=== PATIENT | male | born 1970 | race Caucasian/White ===

== ENCOUNTER 2021-04-19 10:58 | Emergency (ER) | payer OTHER, SELFPAY ==
[2021-04-19 11:03] VITALS: BP 151/80; PULSE 93; RESP 17; TEMP 36.2; O2SAT 97
--- NOTE | 2021-04-19 11:42 | ED.WOUNDLAC ---
HPI - Wound/Laceration General Chief Complaint: Wound/Laceration Stated Complaint: cuts to left fingers Time Seen by Provider: 04/19/21 11:12 Source: patient Mode of arrival: ambulatory Limitations: no limitations History of Present Illness HPI narrative: 50-year-old with no major medical problems here with complaints of superficial laceration to his left hand and left wrist sustained few hours ago while he was at work. Patient states that he accidentally dropped air-conditioner on his hand. He states he had quite a bit of bleeding initially and his employer told him to go to the ER for evaluation. He also states that he is not quite sure about his tetanus vaccination. He denies any other injuries. Onset (ago): hour(s) (1) Extremity Location: Left: hand Place: work Patient tetanus UTD: No Context: accidental Associated symptoms: none Related Data Home Medications Medication Instructions Recorded Confirmed No Home Medications 04/19/21 04/19/21 Allergies Allergy/AdvReac Type Severity Reaction Status Date / Time No Known Allergies Allergy Unknown Verified 04/19/21 11:17 Review of Systems Review of Systems: All systems reviewed & are unremarkable except as noted in HPI and below Constitutional: Constitutional: Reports no additional constitutional complaints Eyes: Eyes: Reports no additional eye complaints ENT: Reports system reviewed and no additional complaints, except as documented Cardiovascular: Cardiovascular: Reports no additional cardiovascular complaints Respiratory: Respiratory: Reports no additional respiratory complaints Musculoskeletal: Musculoskeletal: Reports as per HPI Integumentary/Breasts: Skin/Breast: Reports system reviewed and no additional complaints, except as docu Neurologic: Reports system reviewed and no additional complaints, except as documented Exam Narrative: GENERAL: Well-appearing, well-nourished, and in no acute distress. HEAD: Normocephalic, atraumatic. EYES: PERRLA and EOMI. NECK: Supple. CHEST: Clear to auscultation. No respiratory distress. HEART: Regular rate and rhythm. No murmur heard. Normal peripheral pulses.. EXTREMITIES: Normal range of motion. No edema. Superficial abrasions on the left ring and middle finger, superficial laceration on the left wrist with no active bleeding. SKIN: Warm, dry, no rash. NEURO: No focal deficits. Alert and oriented x3. PSYCH: Normal mood and affect. Course Course Emergency Course: Wound was cleaned no active bleeding at this time sterile dressing was applied tetanus shot was given. Vital Signs Vital signs: Vital Signs Temperature 36.2 C L 04/19/21 11:03 Pulse Rate 93 04/19/21 11:03 Respiratory Rate 17 04/19/21 11:03 Blood Pressure 151/80 H 04/19/21 11:03 Pulse Oximetry 97 04/19/21 11:03 Temperature 36.2 C L 04/19/21 11:03 Pulse Rate 93 04/19/21 11:03 Respiratory Rate 17 04/19/21 11:03 Blood Pressure 151/80 H 04/19/21 11:03 Pulse Oximetry 97 04/19/21 11:03 Discharge Plan Discharge Clinical Impression: Abrasion Patient Disposition: Home, Self-Care Condition: Stable Instructions: Antibiotic Form, Abrasion (ED) Additional Instructions: Keep the wound dry and clean. Can take Tylenol for pain. Follow-up with your doctor if there is any sign of infection. Prescriptions: No Action No Home Medications RF: 0 Follow-up/Referrals: [facility], [Primary Care Provider] - Time of Disposition: 11:46
[2021-04-19] MEDS: TETANUS,DIPHTHERIA,AC PERTUSSIS ADULT (0.5 ML) BOOSTRIX IM (11:57)
== END 2021-04-19 12:07 | disposition home or self-care (01) ==
PROVIDERS: Emergency Provider Family Medicine
DX: S61.512A Laceration without foreign body of left wrist, initial encounter (principal); S60.415A Abrasion of left ring finger, initial encounter; S60.413A Abrasion of left middle finger, initial encounter; Z23 Encounter for immunization; W20.8XXA Other cause of strike by thrown, projected or falling object, initial encounter
CPT/HCPCS: 90471; 90715; 99282

== ENCOUNTER 2021-12-13 09:29 | Emergency (ER) | payer OTHER, SELFPAY ==
--- NOTE | ~2021-12-13 | CT_ITS ---
EXAMINATION: CT brain wo con DATE: 12/13/2021 12:11 INDICATION: Bilateral superior parietal headache, neck pain for one week TECHNIQUE: Computed tomography (CT) of the head was performed without intravenous contrast. The mA wa s adjusted according to patient size. Iterative reconstruction technique was employed. Exam dose: 60 5.33 mGy-cm total exam DLP. COMPARISON: None FINDINGS: No intracranial mass lesion or hemorrhage or cerebrovascular accident. No midline shift or mass effect. Normal ventricular size. Normal jewell-white matter differentiation. No subdural or epidur al hematoma. The orbital contents are unremarkable. Small mucus retention cyst of the posterolateral wall of left maxillary sinus. The mastoid air cells are normally developed and aerated. No fracture or bone destruction of the cranial vault. IMPRESSION: No significant intracranial abnormality Reviewed, dictated and finalized at [facility]. Reviewed, dictated and finalized at [facility].
[2021-12-13 09:35] VITALS: PULSE 87; RESP 16; TEMP 36.8
[2021-12-13 11:10] VITALS: BP 146/95; PULSE 82; RESP 16; TEMP 36.8; O2SAT 96
[2021-12-13] MEDS: PROCHLORPERAZINE EDISYLATE 10 MG/2 ML VIAL 5 MG IV PUSH (11:52)
[2021-12-13] MEDS: diphenhydrAMINE HCl INJ 50 MG/ML VIAL 25 MG IV PUSH (11:52)
[2021-12-13] MEDS: KETOROLAC 15 MG/ML VIAL (*BKC) IV PUSH (11:53)
[2021-12-13 11:57] LABS: Basophils Absolute Auto 0.1 K/mm3 (0.0-0.1); Eosinophils Absolute Auto 0.2 K/mm3 (0-0.3); Eosinophils Percent Auto 3.3 % (0-4.4); Hematocrit 49.3 % (42.0-52.0); Hemoglobin 16.7 g/dL (14.0-18.0); Immature Granulocyte Absolute 0.02 K/mm3 (0.00-0.031); Immature Granulocyte Percent A 0.3 % (0-0.5); Lymphocytes Absolute Auto 1.15 K/mm3 (0.9-3.2); Lymphocytes Percent Auto 19.2 % (18.3-44.2); Mean Corpuscular HGB Conc 33.9 g/dl (32-36); Mean Corpuscular Hemoglobin 30.8 pg (26-34); Mean Corpuscular Volume 90.8 fl (80-100); Mean Platelet Volume 9.4 fl (7.4-10.4); Monocytes Absolute Auto 0.6 K/mm3 (0.1-0.6); Monocytes Percent Auto 10.2 % (2.6-8.5); Platelet Count Result 237 k/mm3 (150-375); Red Blood Count 5.43 M/mm3 (4.6-6.20); Red Cell Distribution Width 13.2 % (11.5-14.5)
[2021-12-13 12:00] VITALS: BP 140/88; PULSE 80; RESP 16; TEMP 36.8; O2SAT 96
[2021-12-13 12:05] LABS: Anion Gap 7 mmol/L (8-16); Blood Urea Nitrogen 15 mg/dL (9-20); Calcium 9.3 mg/dL (8.4-10.2); Carbon Dioxide 25 mmol/L (22-30); Chloride 105 mmol/L (98-107); Estimated CRCL calculation 124 ml/min; Estimated Glomerular Filt Rate > 60; Glucose 119 mg/dL (65-110); Potassium 4.5 mmol/L (3.4-5.0); Sodium 137 mmol/L (137-145)
[2021-12-13] MEDS: HYDROmorphone HCL INJ (*CRX) 1 MG/ML SYR 0.5 MG IV PUSH (12:54)
[2021-12-13 13:00] VITALS: BP 138/88; PULSE 78; RESP 16; O2SAT 96
--- NOTE | 2021-12-13 13:34 | ED.HA ---
HPI - Headache General Chief Complaint: Headache Stated Complaint: headache Time Seen by Provider: 12/13/21 11:04 Source: patient and family Mode of arrival: ambulatory Limitations: no limitations History of Present Illness HPI Narrative: 51-year-old otherwise healthy here with complaints of headache for the last few days now since this morning having more pain. He also complains of mild photophobia. No previous history of migraines. He denies any fever or chills no history of trauma. MD elicited complaint: headache Onset description: gradually Location: frontal Severity: moderate Quality & Timing: throbbing Exacerbating factors: light Relieving factors: nothing Associated symptoms: none Treatments prior to arrival: none Related Data Home Medications Medication Instructions Recorded Confirmed No Home Medications 04/19/21 04/19/21 Allergies Allergy/AdvReac Type Severity Reaction Status Date / Time No Known Allergies Allergy Unknown Verified 04/19/21 11:17 Review of Systems Review of Systems: All systems reviewed & are unremarkable except as noted in HPI and below Constitutional: Constitutional: Reports no additional constitutional complaints Eyes: Eyes: Reports no additional eye complaints ENT: Reports system reviewed and no additional complaints, except as documented Respiratory: Respiratory: Reports no additional respiratory complaints Gastrointestinal: Gastrointestinal: Reports no additional gastrointestinal complaints Musculoskeletal: Musculoskeletal: Reports no additional musculoskeletal complaints Integumentary/Breasts: Skin/Breast: Reports system reviewed and no additional complaints, except as docu Neurologic: Reports as per HPI Psychiatric: Psychiatric: Reports no additional psychiatric complaints Exam Narrative: GENERAL: Well-appearing, well-nourished, and in no acute distress. HEAD: Normocephalic, atraumatic. EYES: PERRLA and EOMI. NECK: Supple. CHEST: Clear to auscultation. No respiratory distress. HEART: Regular rate and rhythm. No murmur heard. Normal peripheral pulses. ABDOMEN: Soft, nontender, nondistended, normal active bowel sounds. EXTREMITIES: Normal range of motion. No edema. SKIN: Warm, dry, no rash. NEURO: No focal deficits. Alert and oriented x3. PSYCH: Normal mood and affect. Course Course Emergency Course: Patient feeling much better after IV pain medication. Informed him about his lab work, CT findings. Recommended him to follow-up with [place] primary doctor. Vital Signs Vital signs: Vital Signs Temperature 36.8 C 12/13/21 09:35 Pulse Rate 87 12/13/21 09:35 Respiratory Rate 16 12/13/21 09:35 Temperature 36.8 C 12/13/21 11:10 Pulse Rate 82 12/13/21 11:10 Respiratory Rate 16 12/13/21 11:10 Blood Pressure 146/95 H 12/13/21 11:10 Pulse Oximetry 96 12/13/21 11:10 MDM - Headache MDM Narrative Medical decision making narrative: 51-year-old otherwise healthy here with complaints of acute headache we will give him pain medication to CT of the head and lab work. Differential Diagnosis Differential diagnosis: Likely migraine, tension headache and subarachnoid hemorrhage Lab Data Result diagrams: 12/13/21 11:51 12/13/21 11:50 Labs: Lab Results 12/13/21 12/13/21 Range/Units 11:50 11:51 WBC 6.0 (4.5-10.0) K/mm3 RBC 5.43 (4.6-6.20) M/mm3 Hgb 16.7 (14.0-18.0) g/dL Hct 49.3 (42.0-52.0) % MCV 90.8 (80-100) fl MCH 30.8 (26-34) pg MCHC 33.9 (32-36) g/dl RDW 13.2 (11.5-14.5) % Plt Count 237 (150-375) k/mm3 MPV 9.4 (7.4-10.4) fl Immature Gran % (Auto) 0.3 (0-0.5) % Neut % (Auto) 66.0 (45.5-73.1) % Lymph % (Auto) 19.2 (18.3-44.2) % Nelson % (Auto) 10.2 H (2.6-8.5) % Eos % (Auto) 3.3 (0-4.4) % Baso % (Auto) 1.0 (0.2-1.2) % Lymph # (Auto) 1.15 (0.9-3.2) K/mm3 Nelson # (Auto) 0.6 (0.1-0.6) K/mm3 Eos # (Auto) 0.2 (0-0.3) K/
== END 2021-12-13 13:52 | disposition home or self-care (01) ==
PROVIDERS: Emergency Provider Family Medicine
DX: R51.9 Headache, unspecified (principal)
CPT/HCPCS: 36415; 70450; 80048; 85025; 96374; 96375; 99284; J0780; J1170; J1200; J1885

== ENCOUNTER 2021-12-23 23:00 | Observation (INO) | payer OTHER, SELFPAY ==
--- NOTE | ~2021-12-23 | XR_ITS ---
EXAMINATION: XR chest 2V DATE: 12/23/2021 23:35 INDICATION: Chest pain TECHNIQUE: PA and lateral views of the chest are obtained. COMPARISON: 05/06/2013 FINDINGS: The lungs are free of acute opacities. There is no pleural effusion or pneumothorax. Cardio megaly is noted. There is mild thoracic spondylosis. Surgical clips in the right upper quadrant are l ikely from prior cholecystectomy. IMPRESSION: 1. No acute cardiopulmonary abnormality. 2. Cardiomegaly. Reviewed, dictated and finalized at location [facility].
--- NOTE | ~2021-12-23 | CT_ITS ---
EXAMINATION: CTA chest PE protocol DATE: 12/24/2021 01:29 INDICATION: Left-sided chest pain TECHNIQUE: Computed tomography angiography (CTA) of the chest was performed with 100 mL Omnipaque-350 intravenous contrast timed to evaluate the pulmonary arteries. Coronal maximum intensity projection 3D-reconstructions were created by the technologist. The dose-length product (DLP) was 840.85 mGy-cm. Automated exposure control and iterative reconstruction technique were employed. COMPARISON: None. FINDINGS: The pulmonary arteries are well-opacified. No pulmonary embolism is identified. There is no pleural effusion or pneumothorax. Cardiomegaly is noted. There are no pathologically enlarged thorac ic lymph nodes. There is mild dependent atelectasis. Mild bilateral gynecomastia is noted. There is m oderate thoracic spondylosis. The gallbladder is surgically absent. IMPRESSION: 1. No pulmonary embolism or acute cardiopulmonary abnormality. 2. Cardiomegaly. Reviewed, dictated and finalized at location [facility].
[2021-12-23 23:08] VITALS: BP 145/78; PULSE 90; RESP 18; TEMP 36.6; O2SAT 99
--- NOTE | 2021-12-23 23:08 | ECG_ITS ---
Measurements Intervals [place] Rate: 93 P: 50 WV: 157 QRS: -25 QRSD: 106 T: 4 QT: 331 QTc: 412 Interpretive Statements SINUS RHYTHM INCOMPLETE RIGHT BUNDLE BRANCH BLOCK VOLTAGE CRITERIA FOR LVH BASELINE ARTIFACT- II, III, AVF, V1 BORDERLINE ECG Electronically Signed On 12-24-2021 6:31:07 CDT by Nathaniel Lee D.O.
[2021-12-23 23:16] VITALS: BP 138/80; PULSE 90; RESP 14; O2SAT 97
--- NOTE | 2021-12-23 23:18 | ED.CHESTPAIN ---
HPI - Chest Pain General Chief Complaint: Chest Pain Stated Complaint: CHEST PAIN Source: RN notes reviewed History of Present Illness HPI narrative: Patient presents emergency department from home via EMS for chest pain. Patient states he was sitting watching TV approximate 930 this evening developed left-sided chest pain the pain is located left side of the chest did not radiate described as sharp and stabbing. Patient states he did feel short of breath with the symptoms EMS was called and he states that he did receive nitroglycerin minimally helped the pain as well as an aspirin states that this time the pain is a 4 out of 10 he denies any fevers or chills nausea vomiting diarrhea or any other symptoms denies any previous cardiac history Related Data Home Medications Medication Instructions Recorded Confirmed No Home Medications 04/19/21 04/19/21 Allergies Allergy/AdvReac Type Severity Reaction Status Date / Time No Known Allergies Allergy Unknown Verified 04/19/21 11:17 Review of Systems Review of Systems: Gen.: Denies fevers or chills ENT: Denies congestion Respiratory: Reports shortness of breath or chest pain CV: See HPI GI: Denies abdominal pain nausea, emesis or diarrhea Musculoskeletal: Denies back pain or muscle pain Neuro: Denies numbness, tingling, weakness or focal weakness Skin: Denies rash Except as documented, all other systems reviewed and negative ON LICENSE OF [facility] Past Medical History Medical History (Updated 12/24/21 @ 03:19 by Emiliano Israel DO) Patient denies significant medical history Social History Social History (Updated 12/23/21 @ 23:19 by Emiliano Israel DO) Smoking status: Never smoker Exam Narrative: APPEARANCE: No acute distress, nontoxic, resting in bed HEENT: Normocephalic, atraumatic, OMM RESPIRATORY: No respiratory distress, clear to auscultation bilaterally with no rhonchi wheezing or rales CARDIOVASCULAR: RRR s murmur Chest: Tender palpation left anterior chest wall no swelling or ecchymosis ABDOMINAL: Soft nondistended tender palpation epigastric and left upper quadrant no tenderness in right upper quadrant right lower quadrant left lower quadrant no rebound or guarding MUSCULOSKELETAl: Moves all extremities. No clubbing, cyanosis or edema. NEURO: Awake and alert. Following commands, speech normal, no focal deficits SKIN:: Warm, dry. Normal Color PSYCHIATRIC: Normal affect/mood Course Course Emergency Course: Patient notes minimal change in pain with GI cocktail Toradol patient then resolved with morphine Discussed Dr. Dumont agrees with consult Discussed with Dr. Hemphill agrees with admission Discussed with patient and family results of workup and diagnosis. Discussed need for admission. Patient and family understand and agree to current treatment plan Vital Signs Vital signs: Vital Signs Temperature 97.8 F 12/23/21 23:08 Pulse Rate 90 12/23/21 23:08 Respiratory Rate 18 12/23/21 23:08 Blood Pressure 145/78 H 12/23/21 23:08 Pulse Oximetry 99 12/23/21 23:08 Temperature 97.8 F 12/23/21 23:08 Pulse Rate 86 12/24/21 01:25 Respiratory Rate 20 12/24/21 01:25 Blood Pressure 121/67 12/24/21 01:25 Pulse Oximetry 95 12/24/21 01:25 MDM - Chest Pain Lab Data Result diagrams: 12/23/21 23:19 12/23/21 23:19 Labs: Lab Results 12/23/21 12/23/21 12/23/21 Range/Units 23:19 23:19 23:19 WBC 5.1 (4.5-10.0) K/mm3 RBC 4.59 L (4.6-6.20) M/mm3 Hgb 14.1 (14.0-18.0) g/dL Hct 41.8 L (42.0-52.0) % MCV 91.1 (80-100) fl MCH 30.7 (26-34) pg MCHC 33.7 (32-36) g/dl RDW 13.3 (11.5-14.5) % Plt Count 184 (150-375) k/mm3 MPV 9.7 (7.4-10.4) fl Immature Gran % (Auto) 0.2 (0-0.5) % Neut % (Auto) 64.6 (45.5-73.1) % Lymph % (Auto) 19.3 (18.3-44.2) % [place] % (Auto) 11.4 H (2.6-8.5) % Eos % (Auto) 3.9 (0-4.4) % Baso % (Auto) 0.6 (0.2-1.2) % L
[2021-12-23 23:26] LABS: Basophils Percent Auto 0.6 % (0.2-1.2); Eosinophils Absolute Auto 0.2 K/mm3 (0-0.3); Eosinophils Percent Auto 3.9 % (0-4.4); Hematocrit 41.8 % (42.0-52.0); Hemoglobin 14.1 g/dL (14.0-18.0); Immature Granulocyte Absolute 0.01 K/mm3 (0.00-0.031); Immature Granulocyte Percent A 0.2 % (0-0.5); Lymphocytes Absolute Auto 0.98 K/mm3 (0.9-3.2); Lymphocytes Percent Auto 19.3 % (18.3-44.2); Mean Corpuscular HGB Conc 33.7 g/dl (32-36); Mean Corpuscular Hemoglobin 30.7 pg (26-34); Mean Corpuscular Volume 91.1 fl (80-100); Mean Platelet Volume 9.7 fl (7.4-10.4); Monocytes Absolute Auto 0.6 K/mm3 (0.1-0.6); Monocytes Percent Auto 11.4 % (2.6-8.5); Neutrophils Absolute Auto 3.3 K/mm3 (1.3-6.7); Neutrophils Percent Auto 64.6 % (45.5-73.1); Platelet Count Result 184 k/mm3 (150-375); Red Blood Count 4.59 M/mm3 (4.6-6.20); Red Cell Distribution Width 13.3 % (11.5-14.5); White Blood Count 5.1 K/mm3 (4.5-10.0)
[2021-12-23 23:27] VITALS: O2SAT 99
[2021-12-23 23:35] LABS: Alanine Aminotransferase 32 U/L (6-50); Albumin Level 4.3 g/dL (3.5-5.1); Alkaline Phosphatase 76 U/L (38-126); Anion Gap 6 mmol/L (8-16); Aspartate Amino Transferase 34 U/L (17-59); Bilirubin,Total 0.6 mg/dL (0.2-1.3); Blood Urea Nitrogen 19 mg/dL (9-20); Calcium 9.3 mg/dL (8.4-10.2); Carbon Dioxide 29 mmol/L (22-30); Chloride 101 mmol/L (98-107); Estimated CRCL calculation 90 ml/min; Estimated Glomerular Filt Rate > 60; Glucose 148 mg/dL (65-110); Lipase 91 U/L (23-300); Potassium 4.1 mmol/L (3.4-5.0); Sodium 136 mmol/L (137-145)
[2021-12-23 23:40] LABS: INR 1.1; Prothrombin Time 13.6 Seconds (11.1-14.7)
[2021-12-23 23:41] LABS: D Dimer 0.29 ug/mL (<0.48); Partial Thromboplastin Time 30.8 SECONDS (22.3-36.8)
[2021-12-23 23:47] LABS: Troponin I < 0.012 ng/mL (0.000-0.034)
[2021-12-24] VITALS (15 sets, daily range): BP systolic 112–132; BP diastolic 62–78; PULSE 72–93; RESP 14–24; TEMP 36.3–36.7; O2SAT 92–99; BMI 37.0
[2021-12-24] MEDS: KETOROLAC 30 MG/ML VIAL (*BKC) IV PUSH (00:25)
[2021-12-24] MEDS: MORPHINE SULFATE (*CRX) 4 MG/ML INJ IV PUSH (01:15)
[2021-12-24 02:36] LABS: Troponin I < 0.012 ng/mL (0.000-0.034)
[2021-12-24 02:52] LABS: SARS-CoV-2 RNA PCR Negative
--- NOTE | 2021-12-24 04:50 | ADMGEN ---
This patient, Josh Mccullough Jr., was admitted to IMU 232 AT 0450. Patient/family oriented to hospital policies and general routines including ID bracelet, bed and alarms, visiting hours, pain management, procedures, bathroom and other care routines, personal items, smoking policy, room service/diet, and visiting hours. Information on how to activate the Rapid Response Team has been discussed. Patient/Family are encouraged to report perceived risks to care and to ask questions if they do not understand what they are told or what they should do.
[2021-12-24 05:35] LABS: Troponin I < 0.012 ng/mL (0.000-0.034)
--- NOTE | 2021-12-24 07:48 | PM.CNCAR ---
Assessment and Plan Additional Plan This is a 51-year-old man with a paucity of cardiac risk factors entering the hospital following being seen in the emergency room yesterday with sudden onset of chest pain in his home last evening. The description of the pain is rather atypical of angina. Despite the symptoms that he is describing last night his electrocardiogram looks normal in his biomarker/troponin levels are normal x3 sets. Obviously this rules him out for acute coronary syndrome. He is not having any exertional anginal-type chest pain. At this point I am not going to recommend any additional cardiac testing since he has a very low risk factor profile. Disposition will be per the primary team Krunal Dean MD [facility] History of Present Illness History of Present Illness Consult date/time: 12/24/21 07:48 Consult reason: chest pain Reason For Visit: CHEST PAIN Narrative: This is a 51-year-old gentleman I am seeing at the request of hospitalist service he was admitted last night from the emergency room after experiencing some chest pain at home. He says he is not known to have any cardiac problems prior to this and really has not had any known general medical problems either. He sees a primary care physician at the [facility] but has not been treated for any general medical problems. He was in his home last night sitting on the couch watching television with his about 9:30 p.m. noted the sudden onset of sharp CP relatively severe left-sided chest pain. The discomfort was moderate to severe in intensity and was aggravated by deep breathing. He went to his bedroom to lie down for a while to see if the symptoms would subside and when they did not after 20-30 minutes had a he and his decided an ambulance should be called and he was brought here to [facility] Emergency Room. In the emergency department is evaluation showed him to have a normal electrocardiogram. He was says he was given some morphine which did improve his pain. Following admission he has had 3 sets of troponin levels done which are all normal. Coming in the room to see him in the IMU this morning he seems to be relatively comfortable. He states that he did get another morphine injection through the night that basically took the pain away. He offers no other complaints. Prior to this he states he is a relatively active man he is retired from the [employer] he does not exercise regularly but he does lead an active lifestyle and he does not generally experience any chest pain when he has to exert himself or walk a distance. He denies any symptoms of palpitations syncope orthopnea PND or edema. His electrocardiogram is unremarkable as are his biomarkers as mentioned above. He sees a lifelong nonsmoker and there is no one in the family that to his knowledge that has coronary artery disease. Review of Systems Constitutional: Constitutional: Reports no additional constitutional complaints Eyes: Eyes: Reports no additional eye complaints ENT: Reports system reviewed and no additional complaints, except as documented Cardiovascular: Cardiovascular: Reports as per HPI Respiratory: Respiratory: Reports as per HPI Gastrointestinal: Gastrointestinal: Reports no additional gastrointestinal complaints Musculoskeletal: Musculoskeletal: Reports no additional musculoskeletal complaints Integumentary/Breasts: Skin/Breast: Reports system reviewed and no additional complaints, except as docu Endocrine: Endocrine: Reports no additional endocrine complaints Hematologic/Lymphatic: Hematologic/Lymphatic: Reports no additional hematologic/lymphatic complaints Allergic/Immunologic: Allergic/Immunologic: Reports no additional allergic/immunologic complaints PMF Past Medical History Medical History (Updated 12/24/21 @ 03:19 by Emiliano Israel DO) Patient denies significant medical history Social History Social History (Updated 12/23/21 @ 23:19 by Emiliano Holly
[2021-12-24] MEDS: ACETAMINOPHEN 325 MG TABLET 650 MG PO (09:25)
--- NOTE | 2021-12-24 09:54 | PM.SD2 ---
Same Day Admit/Disch: HPI History of Present Illness Chief complaint: CHEST PAIN Narrative: Josh Mccullough Jr. is a 51 year old male with hx of ANNE here for chest pain. Patient was here in the ED on December 13 for headache treated with butalbital. He was discharged home and he took about 1-2 tablets total before this symptom completely resolved. Patient has been outside doing quite a bit of yard work including digging holes for trees, cutting grass and trimming. He denies any chest pain with this activity. He was doing well until 930 in the evening while watching TV when he developed ?pressure and stabbing pain in the left side of my chest?. It was associated with shortness of breath but no nausea, vomiting or diaphoresis. He went to lay down but after 30 minutes the pain actually worsened when lying flat. The pain is pleuritic, positional and palpable to the left chest. Review systems otherwise is negative except the complains of some mild right lateral hip pain that has been present for months and also had left upper quadrant pain to palpation by the ER doctor but this is not been a pain that he has experienced prior to this. Because of the chest pain, EMS was called. Patient received aspirin and 2 nitroglycerin tablets by EMS. Patient was seen in the emergency room and admitted further care. [facility] Past Medical History Medical History (Updated 12/24/21 @ 10:02 by Zach Pérez MD) ANNE (obstructive sleep apnea) Surgical History Surgical History (Updated 12/24/21 @ 10:02 by Zach Pérez MD) Hx of cholecystectomy Hx of shoulder surgery Right x2 Social History Social History (Updated 12/24/21 @ 10:03 by Zach Pérez MD) Social History: Patient used tobacco on a rare occasion when he was young but nothing for 20+ years. Drinks 1 alcoholic drink a day. Denies drug use. Lives at home with his . They have a cat. He has 3 children that live elsewhere. He is a full code. He nominates his to be the individual who would make medical decisions for him if he is unable. Smoking packs per day: 0 Smoking cigarettes per day: 0.0 Years smoked: 0 Smoking pack-years: 0.00 Smoking status: Unknown if ever smoked Second hand tobacco smoke exposure: No Alcohol intake: former Substance use type: does not use Spiritual care concerns: No Same Day Admit/Disch: Med Pre-admit Medications Home Medications Medication Instructions Recorded Confirmed Type No Home Medications 04/19/21 12/24/21 History Exam Narrative: AF 98.0 125/66 72 24 93% ra Gen - well-nourished, well-developed male in no acute respiratory distress who is nontoxic-appearing lying semi recumbent in bed HEENT - normocephalic. Atraumatic. Pupils equal round and reactive. Extraocular motions intact. Sclera clear and anicteric. Nares patent. Oropharynx was obscured. No oral lesions. Moist mucous membranes. Tongue was midline. Palate davie symmetrically. No facial asymmetry. Neck - neck was supple. No dominant thyromegaly or masses. Some mild discomfort left SCM but no adenopathy anterior cervical, posterior cervical, suprclav or axillary area. 2+ carotid upstrokes without bruits. Chest - lungs are clear to auscultation bilaterally. No wheezes or crackles. CV - heart was regular rate and rhythm. S1-S2. No murmurs gallops or rubs. Tele showing no signifincat dysrhythmias. Abd - abdomen was soft. Nondistended. Positive bowel sounds. No organomegaly or masses. Mild tenderness in the left upper quadrant but no masses and no guarding or rebound Ext - no clubbing, cyanosis or edema. 2+ DP pulses bilaterally. Neuro - patient is alert and oriented x4. Strength is 5/5 in both upper and lower extremities. Cranial nerves 2-12 are intact. Speech is clear. Psych - normal mood and affect. Patient is pleasant and cooperative. Skin - warm and dry. No rashes noted. DS: Data Data Completed and Pending Labs on day of discharge:
== END 2021-12-24 12:02 | disposition home or self-care (01) ==
LOC: ANHED 12-24 03:19 → ANHIMU 12-24 04:54
PROVIDERS: Admitting Provider Internal Medicine; Emergency Provider Emergency Medicine; Visit Provider Internal Medicine
DX: R07.9 Chest pain, unspecified (principal); R73.9 Hyperglycemia, unspecified; R10.12 Left upper quadrant pain; M25.551 Pain in right hip; G47.33 Obstructive sleep apnea (adult) (pediatric); Z20.822 Contact with and (suspected) exposure to COVID-19
CPT/HCPCS: 36415; 71046; 71275; 80053; 83690; 84484; 85025; 85380; 85610; 85730; 93005; 96374; 96375; 99285; A9270; C9803; G0378; J1885; J2270; Q9967; U0003; U0005

== ENCOUNTER 2022-02-22 09:25 | Emergency (ER) | payer OTHER, SELFPAY ==
--- NOTE | ~2022-02-22 | XR_ITS ---
EXAMINATION: XR chest 1V portable DATE: 02/22/2022 10:04 INDICATION: Cough. Congestion. TECHNIQUE: A single frontal view of the chest was obtained. COMPARISON: Chest 2 views 12/23/2021, chest CT 12/24/2021 FINDINGS: The chest demonstrates clear lungs without pneumonia, pleural effusion, or pneumothorax. Th e heart size is normal. IMPRESSION: 1. No acute cardiopulmonary disease. Reviewed, dictated and finalized at location A.
[2022-02-22 09:39] VITALS: BP 137/87; PULSE 90; RESP 18; TEMP 36.9; O2SAT 96
[2022-02-22 09:56] VITALS: O2SAT 97
--- NOTE | 2022-02-22 10:07 | ED.URI ---
HPI - URI/Sore Throat General Chief Complaint: Upper Respiratory Infection Stated Complaint: sore throat/cough Time Seen by Provider: 02/22/22 09:45 History of Present Illness HPI Narrative: 51-year-old male presents emergency room for evaluation of a productive cough. States cough is been present for about 5 days and has been taking throat lozenges without any relief or resolution of symptoms. Reports an occasional runny nose and postnasal drip, which she is able to easily clear. Denies any shortness of breath difficulty breathing or chest pain. Denies fever. has similar symptoms. Related Data Allergies Allergy/AdvReac Type Severity Reaction Status Date / Time No Known Allergies Allergy Unknown Verified 04/19/21 11:17 Review of Systems Review of Systems: CONSTITUTIONAL: Denies fever, chills, or sweats. EYES: Denies visual changes, redness, or discharge. ENT: Reports rhinorrhea, congestion, and sore throat CARDIOVASCULAR: Denies chest pain, palpitations, or edema. RESPIRATORY: Reports cough GASTROINTESTINAL: Denies abdominal pain, nausea, vomiting, or diarrhea. GENITOURINARY: Denies dysuria or hematuria. SKIN: Denies rash or itching. MUSCULOSKELETAL: Denies back pain, joint pain, or myalgia. NEUROLOGIC: Denies headache, numbness, dizziness, or weakness. PSYCHIATRIC: Denies anxiety or depression. [facility] Past Medical History Medical History ANNE (obstructive sleep apnea) Surgical History Surgical History Hx of cholecystectomy Hx of shoulder surgery Right x2 Social History Social History Social History: Patient used tobacco on a rare occasion when he was young but nothing for 20+ years. Drinks 1 alcoholic drink a day. Denies drug use. Lives at home with his . They have a cat. He has 3 children that live elsewhere. He is a full code. He nominates his to be the individual who would make medical decisions for him if he is unable. Smoking packs per day: 0 Smoking cigarettes per day: 0.0 Years smoked: 0 Smoking pack-years: 0.00 Smoking status: Unknown if ever smoked Second hand tobacco smoke exposure: No Alcohol intake: former Substance use type: does not use Spiritual care concerns: No Exam Narrative: GENERAL: Well-appearing, well-nourished, no physical limitations, and in no acute distress. HEAD: Normocephalic, atraumatic. EYES: Conjunctivae normal, PERRLA and EOMI. ENT: External nose normal, Nares clear, no rhinorrhea or epistaxis. Mucous membranes moist. Oropharynx without tonsillar hypertrophy exudate or other lesions. External ears normal, bilateral TMs normal bilaterally NECK: Supple. No adenopathy or masses. CHEST: Clear to auscultation. No respiratory distress. No wheezes rales or rhonchi. No tenderness. HEART: Regular rate and rhythm. No murmur heard. Normal peripheral pulses. EXTREMITIES: Normal range of motion. No edema. No clubbing or cyanosis SKIN: Warm, dry, no rash. No noted wounds NEURO: No focal deficits. Alert and oriented x3. MAEW. CN's II-XI intact bilaterally, normal gait PSYCH: Cooperative. Normal mood and affect. Course Vital Signs Vital signs: Vital Signs Temperature 36.9 C 02/22/22 09:39 Pulse Rate 90 02/22/22 09:39 Respiratory Rate 18 02/22/22 09:39 Blood Pressure 137/87 02/22/22 09:39 Pulse Oximetry 96 02/22/22 09:39 Oxygen Delivery Room Air 02/22/22 09:39 Temperature 36.9 C 02/22/22 09:39 Pulse Rate 90 02/22/22 09:39 Respiratory Rate 18 02/22/22 09:39 Blood Pressure 137/87 02/22/22 09:39 Pulse Oximetry 97 02/22/22 09:56 Oxygen Delivery Room Air 02/22/22 09:56 MDM - URI/Sore Throat Lab Data Labs: Lab Results 02/22/22 Range/Units 11:13 Influenza A (RT-PCR) Negative (Negative) Influenza B (RT-PCR) Negative ([facility]
--- NOTE | 2022-02-22 11:21 | PC.NURSE ---
Patient report received from JAIME Salinsa. All questions answered and care of patient assumed.
[2022-02-22 11:56] LABS: Influenza A QL RT-PCR Negative (Negative); Influenza B QL RT-PCR Negative (Negative); SARS-CoV-2 RNA PCR Positive
[2022-02-22 13:02] VITALS: BP 137/84; PULSE 78; RESP 16; O2SAT 97
== END 2022-02-22 13:00 | disposition home or self-care (01) ==
PROVIDERS: Emergency Provider Nurse Practitioner Family
DX: U07.1 COVID-19 (principal); G47.33 Obstructive sleep apnea (adult) (pediatric)
CPT/HCPCS: 71045; 87502; 96372; 99283; C9803; J1100; U0003; U0005

== ENCOUNTER 2022-12-09 06:55 | Emergency (ER) | payer OTHER, SELFPAY ==
--- NOTE | ~2022-12-09 | CT_ITS ---
Non-contrast CT scan of the Abdomen and Pelvis Clinical indication: Flank pain Technique: 2.5 mm axial scans were obtained through the abdomen and pelvis without intravenous or or al contrast. Dose reduction technique was used on this scan by utilizing automated exposure control a nd iterative reconstruction technique. The dose-length product (DLP) was 1299.97 mGy-cm. Findings: Images through the lung bases reveal no abnormalities. There is no evidence of renal or ureteral calculi. The kidneys and the ureters are nondilated. Probable tiny hepatic cysts are present. Cholecystectomy clips noted. The spleen, pancreas, and adren als appear normal. There is no aortic aneurysm. There is no evidence of bowel obstruction. Normal appendix. Images through the pelvis were performed. There is no evidence of ascites or lymphadenopathy. Urinary bladder unremarkable. Fat-containing right inguinal hernia present. Prostate gland and seminal vesic les are unremarkable. Impression: Fat-containing right inguinal hernia. No renal, ureteral, or bladder stone. No hydronephrosis. Reviewed, dictated and finalized at [facility]. Impression: Fat-containing right inguinal hernia. No renal, ureteral, or bladder stone. No hydronephrosis.
[2022-12-09 06:58] VITALS: BP 153/84; PULSE 74; RESP 16; TEMP 37; O2SAT 97
[2022-12-09 07:52] LABS: Basophils Percent Auto 0.8 % (0.2-1.2); Eosinophils Absolute Auto 0.3 K/mm3 (0-0.3); Eosinophils Percent Auto 5.3 % (0-4.4); Hematocrit 44.6 % (42.0-52.0); Hemoglobin 15.1 g/dL (14.0-18.0); Immature Granulocyte Absolute 0.02 K/mm3 (0.00-0.031); Immature Granulocyte Percent A 0.4 % (0-0.5); Lymphocytes Absolute Auto 0.97 K/mm3 (0.9-3.2); Lymphocytes Percent Auto 20.6 % (18.3-44.2); Mean Corpuscular HGB Conc 33.9 g/dl (32-36); Mean Corpuscular Hemoglobin 30.8 pg (26-34); Mean Platelet Volume 10.1 fl (7.4-10.4); Monocytes Absolute Auto 0.5 K/mm3 (0.1-0.6); Monocytes Percent Auto 11.5 % (2.6-8.5); Neutrophils Absolute Auto 2.9 K/mm3 (1.3-6.7); Neutrophils Percent Auto 61.4 % (45.5-73.1); Platelet Count Result 177 k/mm3 (150-375); Red Cell Distribution Width 13.2 % (11.5-14.5); White Blood Count 4.7 K/mm3 (4.5-10.0)
[2022-12-09 07:54] LABS: Appearance Urine Clear (Clear); Bilirubin Urine Negative (Negative); Blood Urine Negative (Negative); Color Urine Yellow (Yellow); Glucose Urine UA Negative (Negative); Ketones Urine Negative (Negative); Leukocyte Esterase Ur Negative LEU/UL (Negative); Nitrate Urine Negative (Negative); Protein Urine Negative (Negative); Specific Grav Ur 1.024 (1.001-1.035); Urobilinogen Urine 0.2 mg/dL (<2.0); pH Urine 5.5 (5.0-9.0)
[2022-12-09 08:04] LABS: Add Urine Microscopic? NO
[2022-12-09] MEDS: KETOROLAC 30 MG/ML VIAL (*BKC) IV PUSH (08:05)
[2022-12-09 08:06] LABS: Alanine Aminotransferase 30 U/L (6-50); Albumin Level 4.3 g/dL (3.5-5.1); Alkaline Phosphatase 89 U/L (38-126); Anion Gap 6 mmol/L (8-16); Aspartate Amino Transferase 27 U/L (17-59); Bilirubin,Total 0.7 mg/dL (0.2-1.3); Blood Urea Nitrogen 16 mg/dL (9-20); Calcium 8.8 mg/dL (8.4-10.2); Carbon Dioxide 30 mmol/L (22-30); Chloride 103 mmol/L (98-107); Estimated CRCL calculation 104 ml/min; Estimated Glomerular Filt Rate > 60; Glucose 145 mg/dL (65-110); Lipase 440 U/L (23-300); Potassium 4.4 mmol/L (3.4-5.0); Sodium 139 mmol/L (137-145)
--- NOTE | 2022-12-09 09:28 | ED.BACK ---
HPI - Back Pain/Injury General Chief Complaint: Back Pain/Injury Stated Complaint: back pain Time Seen by Provider: 12/09/22 07:01 History of Present Illness HPI Narrative: Patient is a 52-year-old male who presents ER with low back pain. Began last night. Bilateral lower back. No fall or trauma. Has radiation into the right hip. No difficulty with urination or defecation. No relief with Tylenol at home. Patient also reports some cramping right side abdominal pain that is been ongoing for the last week. Associated with urinary frequency. No testicular pain. No blood in his urine Related Data Allergies Allergy/AdvReac Type Severity Reaction Status Date / Time No Known Allergies Allergy Unknown Verified 12/09/22 07:40 Review of Systems Review of Systems: All systems reviewed & are unremarkable except as noted in HPI and below Constitutional: Constitutional: Denies chills, Denies fatigue and Denies fever(s) ENT: Denies nasal congestion and Denies sore throat Gastrointestinal: Gastrointestinal: Reports abdominal pain, Denies diarrhea, Denies nausea and Denies vomiting Genitourinary: Genitourinary: Denies dysuria, Denies testicular pain and Reports urinary frequency Musculoskeletal: Musculoskeletal: Reports back pain, Denies arthralgias and Denies joint swelling Neurologic: Denies focal weakness and Denies numbness PMFSH Past Medical History Medical History ANNE (obstructive sleep apnea) Surgical History Surgical History Hx of cholecystectomy Hx of shoulder surgery Right x2 Social History Social History Social History: Patient used tobacco on a rare occasion when he was young but nothing for 20+ years. Drinks 1 alcoholic drink a day. Denies drug use. Lives at home with his . They have a cat. He has 3 children that live elsewhere. He is a full code. He nominates his to be the individual who would make medical decisions for him if he is unable. Smoking packs per day: 0 Smoking cigarettes per day: 0.0 Years smoked: 0 Smoking pack-years: 0.00 Smoking status: Unknown if ever smoked Second hand tobacco smoke exposure: No Alcohol intake: former Substance use type: does not use Spiritual care concerns: No Exam Narrative: GENERAL: Well-appearing, well-nourished, and in no acute distress. HEAD: Normocephalic, atraumatic. CHEST: Clear to auscultation. No respiratory distress. HEART: Regular rate and rhythm. Normal peripheral pulses. ABDOMEN: Soft, nontender, nondistended. Back: No reproducible midline tenderness of T/L-spine. There is paraspinal muscular tenderness with knotting that is point tender at the L4 level bilaterally. EXTREMITIES: Normal range of motion. No edema. SKIN: Warm, dry, no rash. NEURO: Alert and oriented x3. PSYCH: Normal mood and affect. Course Course Emergency Course: Patient resting comfortably. Reproducible pain in the low back over muscle knotting/spasm. Recommend anti-inflammatories muscle relaxers for home. Reviewed CT results. Labs reassuring. Mild elevation in lipase which is nonspecific and not felt to be pertinent to his discomfort here. 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 Vital Signs Vital signs: Vital Signs Temperature 98.6 F 12/09/22 06:58 Pulse Rate 74 12/09/22 06:58 Respiratory Rate 16 12/09/22 06:58 Blood Pressure 153/84 H 12/09/22 06:58 Pulse Oximetry 97 12/09/22 06:58 Oxygen Delivery Room Air 12/09/22 06:58 Temperature 98.6 F 12/09/22 06:58 Pulse Rate 74 12/09/22 06:58 Respiratory Rate 16 12/09/22 06:58 Blood Pressure 153/84 H 12/09/22 06:58 Pulse Oximetry 97 12/09/22 06:58 Oxygen Delivery Room Air 12/09/22 06:58 MDM - Back Pain/Injury Lab Data 12/09/22 07:41
== END 2022-12-09 10:02 | disposition home or self-care (01) ==
PROVIDERS: Emergency Provider Emergency Medicine
DX: S39.012A Strain of muscle, fascia and tendon of lower back, initial encounter (principal); G47.33 Obstructive sleep apnea (adult) (pediatric); Z90.49 Acquired absence of other specified parts of digestive tract; K40.90 Unilateral inguinal hernia, without obstruction or gangrene, not specified as recurrent; X58.XXXA Exposure to other specified factors, initial encounter
CPT/HCPCS: 36415; 74176; 80053; 81003; 83690; 85025; 96374; 99284; J1885

== ENCOUNTER 2024-02-16 09:00 | Emergency (ER) | payer OTHER, SELFPAY ==
[2024-02-16] VITALS (8 sets, daily range): BP systolic 117–142; BP diastolic 63–85; PULSE 61–84; RESP 13–20; TEMP 36.3–36.6; O2SAT 94–100
--- NOTE | ~2024-02-16 | XR_ITS ---
Clinical Indication: Chest pain PA and lateral views of the chest: Comparison: 02/22/2022 Findings: The lungs are clear, without evidence of focal consolidation or pleural effusion. Cardiome diastinal silhouette is within normal limits. Bones and soft tissues are unremarkable. Impression: Normal chest. Reviewed, dictated and finalized at location . Impression: Normal chest.
--- NOTE | 2024-02-16 09:01 | ECG_ITS ---
Test Date: 2024-02-16 09:04:52 Measurements Intervals [place] Rate: 82 P: -1 NV: 113 QRS: -24 QRSD: 106 T: 28 QT: 349 QTc: 409 Interpretive Statements SINUS RHYTHM WITH SHORT NV INTERVAL INCOMPLETE RIGHT BUNDLE BRANCH BLOCK DELAYED PRECORDIAL R/S TRANSITION VOLTAGE CRITERIA FOR LVH BASELINE ARTIFACT- V1, V3 BORDERLINE ECG No previous ECG available for comparison Electronically Signed On 02-16-2024 12:44:04 CDT by Nathaniel Lee D.O.
[2024-02-16 09:25] LABS: Basophils Percent Auto 0.6 % (0.2-1.2); Eosinophils Absolute Auto 0.2 K/mm3 (0-0.3); Eosinophils Percent Auto 4.8 % (0-4.4); Hematocrit 43.4 % (42.0-52.0); Immature Granulocyte Absolute 0.01 K/mm3 (0.00-0.031); Immature Granulocyte Percent A 0.2 % (0-0.5); Lymphocytes Absolute Auto 0.99 K/mm3 (0.9-3.2); Lymphocytes Percent Auto 19.7 % (18.3-44.2); Mean Corpuscular HGB Conc 34.6 g/dl (32-36); Mean Corpuscular Hemoglobin 30.9 pg (26-34); Mean Corpuscular Volume 89.5 fl (80-100); Mean Platelet Volume 9.6 fl (7.4-10.4); Monocytes Absolute Auto 0.6 K/mm3 (0.1-0.6); Monocytes Percent Auto 11.5 % (2.6-8.5); Neutrophils Absolute Auto 3.2 K/mm3 (1.3-6.7); Neutrophils Percent Auto 63.2 % (45.5-73.1); Platelet Count Result 183 k/mm3 (150-375); Red Blood Count 4.85 M/mm3 (4.6-6.20); Red Cell Distribution Width 13.1 % (11.5-14.5)
[2024-02-16 09:36] LABS: Alanine Aminotransferase 27 U/L (6-50); Albumin Level 4.3 g/dL (3.5-5.1); Alkaline Phosphatase 84 U/L (38-126); Anion Gap 8 mmol/L (4-12); Aspartate Amino Transferase 22 U/L (17-59); Bilirubin,Total 0.7 mg/dL (0.2-1.3); Blood Urea Nitrogen 15 mg/dL (9-20); Calcium 9.2 mg/dL (8.4-10.2); Carbon Dioxide 27 mmol/L (22-30); Chloride 106 mmol/L (98-107); Estimated CRCL calculation 130 ml/min; Estimated Glomerular Filt Rate > 60; Glucose 136 mg/dL (65-110); Lipase 77 U/L (23-300); Sodium 141 mmol/L (137-145)
[2024-02-16 09:46] LABS: INR 0.9; Prothrombin Time 12.7 Seconds (11.1-14.7)
[2024-02-16 09:47] LABS: Troponin I < 0.012 ng/mL (0.000-0.034)
[2024-02-16 09:48] LABS: Partial Thromboplastin Time 29.4 Seconds (22.3-36.8)
--- NOTE | 2024-02-16 10:24 | ED.GENADULT ---
HPI - General Adult General Chief complaint: Chest Pain Stated complaint: chest pain Time Seen by Provider: 02/16/24 09:49 History of Present Illness HPI narrative: Josh Mccullough is a 53 y/o male with no PMHx who presents today with reports of having some mid to left sided chest pain that started at around 02-03 today - he states that it has improved some. He states that at rest his pain to his left chest is about a 1-2 / 10 and with palpation his pain is at a 7-8/10. He denies any known trauma/ injury/ new exercise - all though he also states that he installed a toilet yesterday. Reports a little SOB maybe a little cough for a couple days No recent fevers. Related Data Allergies Allergy/AdvReac Type Severity Reaction Status Date / Time No Known Allergies Allergy Unknown Verified 02/16/24 09:36 Review of Systems Review of Systems: All systems reviewed & are unremarkable except as noted in HPI and below PMFSH Past Medical History Medical History ANNE (obstructive sleep apnea) Surgical History Surgical History Hx of cholecystectomy Hx of shoulder surgery Right x2 Social History Social History Social History: Patient used tobacco on a rare occasion when he was young but nothing for 20+ years. Drinks 1 alcoholic drink a day. Denies drug use. Lives at home with his . They have a cat. He has 3 children that live elsewhere. He is a full code. He nominates his to be the individual who would make medical decisions for him if he is unable. Smoking packs per day: 0 Smoking cigarettes per day: 0.0 Years smoked: 0 Smoking pack-years: 0.00 Smoking status: Unknown if ever smoked Second hand tobacco smoke exposure: No Alcohol intake: former Substance use type: does not use Spiritual care concerns: No Exam Narrative: GENERAL: Well-appearing, well-nourished, and in no acute distress. HEAD: Normocephalic, atraumatic. EYES: PERRLA and EOMI. ENT: Nares clear, no rhinorrhea or epistaxis. Mucous membranes moist. Oropharynx without tonsillar hypertrophy exudate or other lesions. NECK: Supple. No adenopathy or masses. No carotid bruits or JVD CHEST: Clear to auscultation. No respiratory distress. No wheezes rales or rhonchi + pain with palpation/ appears to have some yellow bruising on the left chest below breast area and to the left lateral area HEART: Regular rate and rhythm. No murmur heard. Normal peripheral pulses. ABDOMEN: Soft, nontender, nondistended, normal active bowel sounds. EXTREMITIES: Normal range of motion. No edema. SKIN: Warm, dry, no rash. NEURO: No focal deficits. Alert and oriented x3. PSYCH: Normal mood and affect. Course Vital Signs Vital signs: Vital Signs Temperature 36.3 C L 02/16/24 09:25 Pulse Rate 84 02/16/24 09:25 Respiratory Rate 18 02/16/24 09:25 Blood Pressure 139/69 02/16/24 09:25 Pulse Oximetry 98 02/16/24 09:25 Oxygen Delivery Room Air 02/16/24 09:25 Temperature 36.3 C L 02/16/24 09:25 Pulse Rate 66 02/16/24 12:12 Respiratory Rate 16 02/16/24 12:12 Blood Pressure 138/82 02/16/24 12:12 Pulse Oximetry 94 02/16/24 12:12 Oxygen Delivery Room Air 02/16/24 09:37 Medical Decision Making [facility] Narrative Medical decision making narrative: 53 y/o No PMHX presents with chest pain worse with palpation On exam he is noted to have some chest bruising that is yellow - could be old but he denies any past or recent known injury/ falls/ trauma - he mentions he did have to install a toilet yesterday and that was strenuous lifting and labored work? lung sounds clear NO obvious swelling / edema noted Concern for : pulled muscle / contusion chest / low suspicion for ACS with the increased pain with palpation/ pericarditis/ costochondritis / Plan to check labs
[2024-02-16 10:50] LABS: D Dimer 0.36 ug/mL (<0.48)
[2024-02-16] MEDS: KETOROLAC 30 MG/ML VIAL (*BKC) IV PUSH (11:01)
--- NOTE | 2024-02-16 12:13 | ECG_ITS ---
Test Date: 2024-02-16 12:15:21 Measurements Intervals [place] Rate: 65 P: 10 [place]: 120 QRS: -22 QRSD: 104 T: -2 QT: 385 QTc: 403 Interpretive Statements SINUS RHYTHM INCOMPLETE RIGHT BUNDLE BRANCH BLOCK DELAYED PRECORDIAL R/S TRANSITION VOLTAGE CRITERIA FOR LVH BORDERLINE ST-T WAVE ABNORMALITY- INFERIOR LEADS BASELINE ARTIFACT- I, II, III, AVR, AVL BORDERLINE ECG Compared to ECG 02/16/2024 09:04:52 NO SIGNIFICANT CHANGE Electronically Signed On 02-16-2024 12:40:28 CDT by Nathaniel Lee D.O.
[2024-02-16 12:36] LABS: Troponin I < 0.012 ng/mL (0.000-0.034)
== END 2024-02-16 14:08 | disposition home or self-care (01) ==
PROVIDERS: Emergency Medicine; Emergency Provider Nurse Practitioner Family
DX: M94.0 Chondrocostal junction syndrome [Tietze] (principal); R07.89 Other chest pain
CPT/HCPCS: 36415; 71046; 80053; 83690; 84484; 85025; 85380; 85610; 85730; 93005; 96374; 99284; J1885

== ENCOUNTER 2024-07-16 11:11 | Emergency (ER) | payer OTHER, SELFPAY ==
--- NOTE | ~2024-07-16 | CT_ITS ---
CT brain wo con Ordering provider: Sherie Martinez History: 54 years Male with . fall, head injury . Comparison: December 13, 2021 Technique: CT of the head without contrast. Radiation reduction technique utilized.The dose-length product was 605.33 mGy-cm. FINDINGS: BRAIN PARENCHYMA AND CSF SPACES: No midline shift, mass effect or hemorrhage. The brain parenchyma a nd CSF spaces are otherwise normal. VISUALIZED PARANASAL SINUSES: Bilateral ethmoid sinus disease. MASTOIDS: Well aerated. BONES: The bones appear intact. SOFT TISSUES: Visualized nasopharynx is normal. Superficial soft tissues are normal. IMPRESSION: No acute intracranial findings. Reviewed, dictated and finalized at location A. RTAKER ASSISTANT
--- NOTE | ~2024-07-16 | XR_ITS ---
XR chest 2V Ordering provider: Sherie Martinez PA-C History: 54 years Male with . weakness . Comparison: February 16, 2024 FINDINGS: MEDIASTINUM: The cardiac silhouette is slightly enlarged. LUNGS: No infiltrates, effusions or pneumothorax. OTHER: No free air under the diaphragm. IMPRESSION: No acute cardiopulmonary pathology. Reviewed, dictated and finalized at location A. ECTIVE SIGNAL OPERATOR
[2024-07-16 11:18] VITALS: BP 165/99; PULSE 98; RESP 16; TEMP 36.4; O2SAT 97
--- NOTE | 2024-07-16 12:33 | ED.HEATRA ---
HPI - Head Injury General Chief complaint: Head Injury <Sherie Martinez PA-C - Last Filed: 07/17/24 10:38> Stated complaint: fall, head injury yesterday <Sherie Martinez PA-C - Last Filed: 07/17/24 10:38> Time Seen by Provider: 07/16/24 12:33 <Sherie Martinez PA-C - Last Filed: 07/17/24 10:38> Focused HPI: This is a 54 year old male that presents to the ER after a head injury yesterday. Reports yesterday he was sick. Reports having vomiting and diarrhea. Reports he is unsure what caused him to fall, but he ended up on the floor. He does not believe he lost consciousness. He hit his head on the floor. Reports he feels dizzy and tired. Denies chest pain, shortness of breath, neck pain, numbness, weakness. GENERAL: Well-appearing, well-nourished, and in no acute distress. HEAD: Normocephalic, atraumatic. CHEST: Clear to auscultation. ?No respiratory distress. HEART: Regular rate and rhythm.? NEURO: ?Alert and oriented x3. Patient screened in triage and initial orders placed.? ?Additional care and disposition to be based upon?diagnostic testing and treatment. <Sherie Martinez PA-C - Last Filed: 07/17/24 10:38> History of Present Illness HPI Narrative: per above; patient has been feeling sick yesterday, with feeling weak and had fallen to the ground, this morning woke up, had a slight headache also not feeling well, so came in. <Alyssa Brown MD - Last Filed: 07/16/24 18:12> Related Data Allergies/Adverse reactions: Allergies Allergy/AdvReac Type Severity Reaction Status Date / Time No Known Allergies Allergy Unknown Verified 02/16/24 09:36 <Sherie Martinez PA-C - Last Filed: 07/17/24 10:38> Review of Systems Review of Systems: All systems reviewed & are unremarkable except as noted in HPI and below <Alyssa Brown MD - Last Filed: 07/16/24 18:12> PMFSH Past Medical History Medical History: Medical History ANNE (obstructive sleep apnea) <Sherie Martinez PA-C - Last Filed: 07/17/24 10:38> Surgical History Surgical History: Surgical History Hx of cholecystectomy Hx of shoulder surgery Right x2 <Sherie Martinez PA-C - Last Filed: 07/17/24 10:38> Social History Social History: Social History Social History: Patient used tobacco on a rare occasion when he was young but nothing for 20+ years. Drinks 1 alcoholic drink a day. Denies drug use. Lives at home with his . They have a cat. He has 3 children that live elsewhere. He is a full code. He nominates his to be the individual who would make medical decisions for him if he is unable. Smoking packs per day: 0 Smoking cigarettes per day: 0.0 Years smoked: 0 Smoking pack-years: 0.00 Smoking status: Unknown if ever smoked Second hand tobacco smoke exposure: No Alcohol intake: former Substance use type: does not use Spiritual care concerns: No <Sherie Martinez PA-C - Last Filed: 07/17/24 10:38> Exam Narrative: EXAMINATION OF ORGAN SYSTEMS/BODY AREAS: Constitutional: Vital signs per nursing GENERAL:[No acute distress, non-toxic appearing.] HEAD: Abrasion left side of forehead EYES: EOMI, conjunctiva normal ENT: Hearing grossly intact LUNGS: Nonlabored breathing. HEART: [Regular rate and rhythm] ABD: [Soft], [nontender to palpation] EXT: Normal range of motion SKIN: [No rashes or lesions.] NEURO: [Alert and oriented x 3. No gross focal sensory or strength deficits.] PSYCH: Normal affect <Alyssa Brown MD - Last Filed: 07/16/24 18:12> Course Vital Signs Vital signs: Vital Signs Temperature 97.6 F 07/16/24 11:18 Pulse Rate 98 07/16/24 11:18 Respiratory Rate 16 07/16/24 11:18 Blood Pressure 165/99 H 07/16/24 11:18 Pulse Oximetry 97 07/16/24 11:18 Oxygen Delivery Room Air 07/16/24 11:18 Temperature 97.6 F 07/16/24 16:27 Pulse Rate 89 07/16/24 16:40 Respiratory Rate 18 07/16/24 16:40 Blood Pressure 157/97 H 07/16/24 16:40 Pulse Oximetry 98 07/16/24 16:40 Oxygen Delivery Room Air 07/16/24 11:18 <Sherie Martinez PA-C - Last Filed: 07/17/24 10:38> Vital Signs Temperature 97.6 F 07/16/24 11:18 Pulse Rate 98 07/16/24 11:18 Respiratory Rate 16 07/16/24 11:18 Blood Pressure 165/99 H 07/16/24 11:18 Pulse Oximetry 97 07/16/24 11:18 Oxygen Delivery Room Air 07/16/24 11:18 Temperature 97.6 F 07/16/24 16:27 Pulse Rate 89 07/16/24 16:40 Respiratory Rate 18 07/16/24 16:40 Blood Pressure 157/97 H 07/16/24 16:40 Pulse Oximetry 98 07/16/24 16:40 Oxygen Delivery Room Air 07/16/24 11:18 <Alyssa Brown MD - Last Filed: 07/16/24 18:12> MDM - Head Injury MDM Narrative Medical decision making narrative: Patient presenting with a viral syndrome that started yesterday, he then had an episode where he was lightheaded and hit the ground, morning he was still not feeling although a normal so came in to get checked out. Chest x-ray clear, CT head thankfully it negative for acute abnormality. EKG on my independent interpretation shows normal sinus rhythm rate 96, normal DE, QRS, QTC, no significant signs of acute arrhythmia or ischemia. labs without acute abnormality other than ketones in urine which is in line with what I suspect to be dehydration causing symptoms. Fluids given, nausea medication and headache medication given, now realized he does feel better. I do feel he is stable for discharge return precautions and follow-up instructions to PCP <Alyssa Brown MD - Last Filed: 07/16/24 18:12> Lab Data Result diagrams: 07/16/24 13:16 07/16/24 13:16 <Sherie Martinez PA-C - Last Filed: 07/17/24 10:38> Labs: Lab Results 07/16/24 07/16/24 Range/Units 13:16 15:52 WBC 6.0 (4.5-10.0) K/mm3 RBC 5.62 (4.6-6.20) M/mm3 Hgb 17.3 (14.0-18.0) g/dL Hct 49.8 (42.0-52.0) % MCV 88.6 (80-100) fl MCH 30.8 (26-34) pg MCHC 34.7 (32-36) g/dl RDW 13.0 (11.5-14.5) % Plt Count 227 (150-375) k/mm3 MPV 9.5 (7.4-10.4) fl Immature Gran % (Auto) 0.5 (0-0.5) % Neut % (Auto) 69.5 (45.5-73.1) % Lymph % (Auto) 13.1 L (18.3-44.2) % [place] % (Auto) 14.0 H (2.6-8.5) % Eos % (Auto) 2.2 (0-4.4) % Baso % (Auto) 0.7 (0.2-1.2) % Lymph # (Auto) 0.79 L (0.9-3.2) K/mm3 [place] # (Auto) 0.8 H (0.1-0.6) K/mm3 Eos # (Auto) 0.1 (0-0.3) K/mm3 Baso # (Auto) 0.0 (0.0-0.1) K/mm3 Abs Immat Gran (auto) 0.03 (0.00-0.031) K/mm3 Absolute Neuts (auto) 4.2 (1.3-6.7) K/mm3 Absolute Nucleated RBC 0.000 (0.0-0.012) K/mm3 Nucleated RBC % 0.0 (0.0-0.2) % Sodium 137 (137-145) mmol/L Potassium 3.7 (3.4-5.0) mmol/L Chloride 104 (98-107) mmol/L Carbon Dioxide 26 (22-30) mmol/L Anion Gap 7 (4-12) mmol/L BUN 19 (9-20) mg/dL Creatinine 1.00 (0.7-1.3) mg/dL Estim Creat Clear Calc 101 ml/min Estimated GFR > 60 (59 - ) Glucose 164 H (65-110) mg/dL Calcium 9.6 (8.4-10.2) mg/dL Total Bilirubin 0.8 (0.2-1.3) mg/dL AST 28 (17-59) U/L ALT 38 (6-50) U/L Alkaline Phosphatase 87 (38-126) U/L Total Protein 8.0 (6.3-8.2) g/dL Albumin 4.6 (3.5-5.1) g/dL Urine Color Dark yellow (Yellow) Urine Appearance Clear (Clear) Urine pH 5.5 (5.0-9.0) Ur Specific [place] 1.036 H (1.001-1.035) Urine Protein 1+ H (Negative) mg/dL Urine Glucose (UA) Negative (Negative) mg/dL Urine Ketones 1+ H (Negative) mg/dL Ur Blood (Man) Negative (Negative) Urine Nitrate Negative (Negative) Urine Bilirubin 2+ H (Negative) Urine Urobilinogen 1.0 (<2.0) mg/dL Add Ur Microanalysis Reviewed Leukocyte Esterase Rfl Negative (Negative) FANTA/UL Urine RBC 0-2 (0-2) /hpf Urine WBC 0-5 (0-3) /hpf Ur Squamous Epith Cells None seen (Few) /hpf Urine Bacteria None seen /hpf Urine Casts 3-5 Urine Mucus Present /lpf <Sherie Martinez PA-C - Last Filed: 07/17/24 10:38> Lab Results 07/16/24 07/16/24 Range/Units 13:16 15:52 WBC 6.0 (4.5-10.0) K/mm3 RBC 5.62 (4.6-6.20) M/mm3 Hgb 17.3 (14.0-18.0) g/dL Hct 49.8 (42.0-52.0) % MCV 88.6 (80-100) fl MCH 30.8 (26-34) pg MCHC 34.7 (32-36) g/dl RDW 13.0 (11.5-14.5) % Plt Count 227 (150-375) k/mm3 MPV 9.5 (7.4-10.4) fl Immature Gran % (Auto) 0.5 (0-0.5) % Neut % (Auto) 69.5 (45.5-73.1) % Lymph % (Auto) 13.1 L (18.3-44.2) % [place] % (Auto) 14.0 H (2.6-8.5) % Eos % (Auto) 2.2 (0-4.4) % Baso % (Auto) 0.7 (0.2-1.2) % Lymph # (Auto) 0.79 L (0.9-3.2) K/mm3 [place] # (Auto) 0.8 H (0.1-0.6) K/mm3 Eos # (Auto) 0.1 (0-0.3) K/mm3 Baso # (Auto) 0.0 (0.0-0.1) K/mm3 Abs Immat Gran (auto) 0.03 (0.00-0.031) K/mm3 Absolute Neuts (auto) 4.2 (1.3-6.7) K/mm3 Absolute Nucleated RBC 0.000 (0.0-0.012) K/mm3 Nucleated RBC % 0.0 (0.0-0.2) % Sodium 137 (137-145) mmol/L Potassium 3.7 (3.4-5.0) mmol/L Chloride 104 (98-107) mmol/L Carbon Dioxide 26 (22-30) mmol/L Anion Gap 7 (4-12) mmol/L BUN 19 (9-20) mg/dL Creatinine 1.00 (0.7-1.3) mg/dL Estim Creat Clear Calc 101 ml/min Estimated GFR > 60 (59 - ) Glucose 164 H (65-110) mg/dL Calcium 9.6 (8.4-10.2) mg/dL Total Bilirubin 0.8 (0.2-1.3) mg/dL AST 28 (17-59) U/L ALT 38 (6-50) U/L Alkaline Phosphatase 87 (38-126) U/L Total Protein 8.0 (6.3-8.2) g/dL Albumin 4.6 (3.5-5.1) g/dL Urine Color Dark yellow (Yellow) Urine Appearance Clear (Clear) Urine pH 5.5 (5.0-9.0) Ur Specific [place] 1.036 H (1.001-1.035) Urine Protein 1+ H (Negative) mg/dL Urine Glucose (UA) Negative (Negative) mg/dL Urine Ketones 1+ H (Negative) mg/dL Ur Blood (Man) Negative (Negative) Urine Nitrate Negative (Negative) Urine Bilirubin 2+ H (Negative) Urine Urobilinogen 1.0 (<2.0) mg/dL Add Ur Microanalysis Reviewed Leukocyte Esterase Rfl Negative (Negative) FANTA/UL Urine RBC 0-2 (0-2) /hpf Urine WBC 0-5 (0-3) /hpf Ur Squamous Epith Cells None seen (Few) /hpf Urine Bacteria None seen /hpf Urine Casts 3-5 Urine Mucus Present /lpf <Alyssa Bronw MD - Last Filed: 07/16/24 18:12> Imaging Data Radiologist's impression: ITS Impressions Head CT 07/16/24 13:00 IMPRESSION: No acute intracranial findings. Chest X-Ray 07/16/24 13:48 IMPRESSION: No acute cardiopulmonary pathology. <Sherie Martinez PA-C - Last Filed: 07/17/24 10:38> Critical Care Time Critical Care Time Critical Care Time: No <Sherie Martinez PA-C - Last Filed: 07/17/24 10:38> Discharge Plan Discharge Clinical Impression: Acute dehydration, Acute viral syndrome Closed head injury Qualifiers: Encounter type: initial encounter Qualified Code(s): S09.90XA - Unspecified injury of head, initial encounter <Sherie Martinez PA-C - Last Filed: 07/17/24 10:38> Patient Disposition: Home, Self-Care <Sherie Martinez PA-C - Last Filed: 07/17/24 10:38> Condition: Stable <Sherie Martinez PA-C - Last Filed: 07/17/24 10:38> Instructions: Head Injury (ED), Viral Syndrome (ED) <Sherie Martinez PA-C - Last Filed: 07/17/24 10:38> Additional Instructions: Please follow up with your doctor; you can always return for any further issues. Be sure to keep hydrated. <Sherie Martinez PA-C - Last Filed: 07/17/24 10:38> Patient Language: Slovenian <Sherie Martinez PA-C - Last Filed: 07/17/24 10:38> Prescriptions: No Action [id number] 30-10-200 mg tablet 1 cap PO Q4-6H PRN (Reason: cough) Qty: 30 0RF cyclobenzaprine 10 mg tablet 10 mg PO TID PRN (Reason: muscle spasm) Qty: 20 0RF naproxen 375 mg tablet 375 mg PO BID Qty: 14 0RF <Sherie Martinez PA-C - Last Filed: 07/17/24 10:38> Follow-up/Referrals: UNKNOWN,DOCTOR [Primary Care Provider] - <Sherie Martinez PA-C - Last Filed: 07/17/24 10:38> Stand Alone Forms: Work/School Release IP <Sherie Martinez PA-C - Last Filed: 07/17/24 10:38>
--- NOTE | 2024-07-16 12:35 | ECG_ITS ---
Test Date: 2024-07-16 13:19:27 Measurements Intervals [place] Rate: 96 P: 13 [place]: 155 QRS: -30 QRSD: 106 T: 60 QT: 332 QTc: 421 Interpretive Statements SINUS RHYTHM INCOMPLETE RIGHT BUNDLE BRANCH BLOCK [90+ ms QRS DURATION, TERMINAL R IN V1/V2, 40+ ms S IN I/aVL/V4/V5/V6] VOLTAGE CRITERIA FOR LVH [MEETS CRITERIA IN ONE OF: R(aVL), S(V1), R(V5), R(V5/V6)+S(V1)] Compared to ECG 02/16/2024 12:15:21 No significant change Electronically Signed On 07-17-2024 11:45:11 [employer]YSTAL LAPPER by Cinthia Tilley
[2024-07-16 13:23] LABS: Basophils Percent Auto 0.7 % (0.2-1.2); Eosinophils Absolute Auto 0.1 K/mm3 (0-0.3); Eosinophils Percent Auto 2.2 % (0-4.4); Hematocrit 49.8 % (42.0-52.0); Hemoglobin 17.3 g/dL (14.0-18.0); Immature Granulocyte Absolute 0.03 K/mm3 (0.00-0.031); Immature Granulocyte Percent A 0.5 % (0-0.5); Lymphocytes Absolute Auto 0.79 K/mm3 (0.9-3.2); Lymphocytes Percent Auto 13.1 % (18.3-44.2); Mean Corpuscular HGB Conc 34.7 g/dl (32-36); Mean Corpuscular Hemoglobin 30.8 pg (26-34); Mean Corpuscular Volume 88.6 fl (80-100); Mean Platelet Volume 9.5 fl (7.4-10.4); Monocytes Absolute Auto 0.8 K/mm3 (0.1-0.6); Neutrophils Absolute Auto 4.2 K/mm3 (1.3-6.7); Neutrophils Percent Auto 69.5 % (45.5-73.1); Platelet Count Result 227 k/mm3 (150-375); Red Blood Count 5.62 M/mm3 (4.6-6.20)
[2024-07-16 13:30] LABS: Alanine Aminotransferase 38 U/L (6-50); Albumin Level 4.6 g/dL (3.5-5.1); Alkaline Phosphatase 87 U/L (38-126); Anion Gap 7 mmol/L (4-12); Aspartate Amino Transferase 28 U/L (17-59); Bilirubin,Total 0.8 mg/dL (0.2-1.3); Blood Urea Nitrogen 19 mg/dL (9-20); Calcium 9.6 mg/dL (8.4-10.2); Carbon Dioxide 26 mmol/L (22-30); Chloride 104 mmol/L (98-107); Estimated CRCL calculation 101 ml/min; Estimated Glomerular Filt Rate > 60; Glucose 164 mg/dL (65-110); Potassium 3.7 mmol/L (3.4-5.0); Sodium 137 mmol/L (137-145)
[2024-07-16] MEDS: SODIUM CHLORIDE 0.9% IV 1,000 ML 999 ML IV CONT (15:15)
[2024-07-16] MEDS: METOCLOPRAMIDE HCL INJ 10 MG/2 ML VIAL IV PUSH (15:25)
[2024-07-16 15:40] VITALS: BP 150/82; PULSE 97
[2024-07-16 15:47] VITALS: BP 149/86; PULSE 101
[2024-07-16 15:49] VITALS: BP 148/94; PULSE 109
[2024-07-16 16:27] VITALS: BP 136/90; PULSE 100; RESP 17; TEMP 36.4; O2SAT 96
[2024-07-16 16:40] VITALS: BP 157/97; PULSE 89; RESP 18; O2SAT 98
[2024-07-16 16:47] LABS: Add Urine Microscopic? YES; Appearance Urine Clear (Clear); Bacteria Urine None Seen /hpf; Bilirubin Urine 2+ (Negative); Blood Urine Negative (Negative); Color Urine Dark Yellow (Yellow); Glucose Urine UA Negative (Negative); Ketones Urine 1+ mg/dL (Negative); Leukocyte Esterase Ur Negative LEU/UL (Negative); Mucus Urine Present /lpf; Need Manual Microscopic Reviewed; Nitrate Urine Negative (Negative); Protein Urine 1+ mg/dL (Negative); RBC Urine 0-2 /hpf (0-2); Specific Grav Ur 1.036 (1.001-1.035); Squamous Epithelial Cell Urine None Seen /hpf (Few); WBC Urine 0-5 /hpf (0-3); pH Urine 5.5 (5.0-9.0)
== END 2024-07-16 16:41 | disposition home or self-care (01) ==
PROVIDERS: Physician Assistant; Emergency Provider Emergency Medicine
DX: S09.90XA Unspecified injury of head, initial encounter (principal); E86.0 Dehydration; B34.9 Viral infection, unspecified; R42 Dizziness and giddiness; W19.XXXA Unspecified fall, initial encounter; G47.33 Obstructive sleep apnea (adult) (pediatric)
CPT/HCPCS: 36415; 70450; 71046; 80053; 81001; 85025; 93005; 96361; 96374; 99284; J2765; J7030